=== PATIENT | male | born 1965 | race Caucasian/White ===

== ENCOUNTER → 2016-07-25 | Outpatient (CLI) | payer MEDICAID ==
[2016-07-25 09:40] LABS: HEMOGLOBIN 13.6 g/dL (14.1-18.0); LYMPH % 22.6 % (10-50)
[2016-07-25 10:41] LABS: BUN 21 mg/dL (7-18)
[2016-07-25 10:42] LABS: GFR (ESTIMATED) 64 ML/MIN (>60)
== END ==
LOC: LAB 09:31
PROVIDERS: Internal Medicine Adolescent Medicine
DX: E78.5 Hyperlipidemia, unspecified (principal); R63.5 Abnormal weight gain